=== PATIENT | female | born 1960 | race American Indian/Alaskan Native ===

== ENCOUNTER 2020-04-28 07:58 | Outpatient (CLI) | payer MEDICARE ==
[2020-04-28] MEDS ORDERED: REGADENOSON 0.4 MG/5 ML INJ IV ONE (09:28)
[2020-04-28 11:27] VITALS: BP 85/65
--- NOTE | 2020-04-28 12:21 | Treadmill Report ---
NUCLEAR PERFUSION SCAN REFERRING PHYSICIAN: Dr. Gaston Puente PROTOCOL: The patient was brought to the stress lab in a postoperative state, given 10 mCi of technetium 99m at rest and the patient underwent rest imaging. The patient underwent a Lexiscan stress test per standard protocol. 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 Shortly thereafter, the patient underwent stress imaging. Raw imaging reveals breast attenuation, making this a technically difficult study. There is a moderate sized fixed anterior defect, which may be consistent with breast attenuation. Otherwise, no evidence of significant fixed or reversible perfusion defect suggestive of prior infarction. Gated wall motion reveals normal systolic thickening, calculated ejection fraction of 54%. No TID. CONCLUSIONS: 1. Technically difficult study due to breast attenuation with a moderate fixed anterior defect, which may be artifactual. Otherwise, no convincing evidence of significant ischemia or prior infarction. 2. Normal left ventricular systolic performance without evidence of transient ischemic dilatation or stress-induced segmental wall motion abnormalities. Recommend clinical correlation. JOB# [id number] GABI/MARCIE
== END 2020-04-28 07:59 | disposition home or self-care (01) ==
LOC: CARD 07:58
PROVIDERS: ATTEND Internal Medicine
DX: Z01.818 Encounter for other preprocedural examination (principal); I12.0 Hypertensive chronic kidney disease with stage 5 chronic kidney disease or end stage renal disease; N18.6 End stage renal disease; E11.22 Type 2 diabetes mellitus with diabetic chronic kidney disease; R94.31 Abnormal electrocardiogram [ECG] [EKG]; Z99.2 Dependence on renal dialysis
CPT/HCPCS: 78452; 93017; A9502; J2785